=== PATIENT | female | born 1970 | race Caucasian/White ===

== ENCOUNTER → 2017-02-23 | Outpatient (CLI) | payer OTHER ==
[~2017-02-23] VITALS: Ht 177.8 cm; Wt 74.8 kg
[~2017-02-23] MED LIST: ALDACTONE50 MG PO; CALCIUM 500 +1 EAC5 PO; DOXIL IV; LASIX 20 MG TAB20 MG PO; MAGOX 400400 MG PO; MILK OF MA2400 MG/10 PO; NAPROSYN500 MG PO; ONDANSETRON HCL4 M2 PO; PRILOSEC 20 MG20 MG PO; SEA-OMEGA 1,001 EACH PO; TRAZODONE HCL100 MG PO; VENLAFAXIN37.5 MG/1 PO; VITAMIN B-650 M1 PO; VITAMIN D1000 UNI1 PO; VITAMIN E400 UNIT PO; XANAX 0.5 MG0.5 MG PO; ZYRTEC10 M5 PO
[2017-02-23 12:30] VITALS: BP 104/69
[2017-02-23 12:44] LABS: HEMATOCRIT 29.1 % (37.0-47.0); HEMOGLOBIN 10.3 gm/dL (12.0-15.0); MCH 35.8 pg (26.0-34.0); MCHC 35.4 g/dL (28.0-37.0); RBC 2.88 mil/uL (4.20-5.00); WBC 3.7 thou/uL (4.0-11.0)
== END | disposition home or self-care (01) ==
LOC: SPEC 02-20 11:45
PROVIDERS: Radiology Vascular & Interventional Radiology
DX: R18.8 Other ascites (principal); K21.9 Gastro-esophageal reflux disease without esophagitis; Z85.3 Personal history of malignant neoplasm of breast; Z85.05 Personal history of malignant neoplasm of liver; Z90.710 Acquired absence of both cervix and uterus; Z88.8 Allergy status to other drugs, medicaments and biological substances; Z98.890 Other specified postprocedural states

== ENCOUNTER → 2017-03-04 | Outpatient (CLI) | payer OTHER ==
[~2017-03-04] VITALS: Ht 177.8 cm; Wt 74.4 kg
[2017-03-04 10:18] VITALS: BP 101/55
[2017-03-04 11:05] LABS: HEMATOCRIT 29.2 % (37.0-47.0); HEMOGLOBIN 10.3 gm/dL (12.0-15.0); MCH 36.2 pg (26.0-34.0); MCHC 35.2 g/dL (28.0-37.0); MCV 103.1 fL (80.0-100.0); RBC 2.83 mil/uL (4.20-5.00); RDW 17.9 % (10.5-14.5); WBC 2.3 thou/uL (4.0-11.0)
[2017-03-04 11:14] LABS: CALCIUM 8.9 mg/dL (8.5-10.1); CREATININE 0.7 mg/dL (0.6-1.0); POTASSIUM 4.4 mmol/L (3.5-5.1)
[2017-03-04 11:23] LABS: PROTIME 9.8 Seconds (9.3-11.4)
== END | disposition home or self-care (01) ==
LOC: SPEC 09:59
PROVIDERS: Radiology Vascular & Interventional Radiology
DX: T85.691A Other mechanical complication of intraperitoneal dialysis catheter, initial encounter (principal); R18.8 Other ascites; Z98.890 Other specified postprocedural states; Z90.710 Acquired absence of both cervix and uterus; Z85.3 Personal history of malignant neoplasm of breast; Z88.8 Allergy status to other drugs, medicaments and biological substances; Y83.8 Other surgical procedures as the cause of abnormal reaction of the patient, or of later complication, without mention of misadventure at the time of the procedure